=== PATIENT | male | born 1955 | race Caucasian/White ===

== ENCOUNTER 2017-12-30 08:51 | Day surgery (SDC) | payer BC ==
[~2017-12-30] VITALS: Ht 170.2 cm; Wt 61.2 kg
[~2017-12-30 08:51] MED LIST: BACTRIM DS1 TAB PO; BACTROBAN21 EX; CIPRO500 MG OR; NO HOME MEDS
[2017-12-30 12:02] VITALS: BP 136/80
== END 2017-12-30 12:05 | disposition home or self-care (01) | DRG 951 ==
LOC: ENDO 08:51
PROVIDERS: ATTEND Surgery
PROC: 0DJD8ZZ Inspection of Lower Intestinal Tract, Via Natural or Artificial Opening Endoscopic (ICD-10-PCS; principal; 2017-12-30)
DX: Z12.11 Encounter for screening for malignant neoplasm of colon (principal); Q43.9 Congenital malformation of intestine, unspecified